=== PATIENT | male | born 1990 | race African-American/Black ===

== ENCOUNTER 2023-07-17 04:22 | Emergency (ER) | payer SELFPAY ==
[~2023-07-17] VITALS: Ht 172.7 cm; Wt 69.9 kg
[2023-07-17] MEDS: ALBUTEROL SULF 2.5 MG/0.5ML(0.5%) NEB SOLN NEB ONE (05:07)
[2023-07-17] MEDS: IPRATROPIUM BROM 0.5 MG/2.5ML INH SOL NEB ONE (05:07)
[2023-07-17 05:53] VITALS: PULSE 85; RESP 14; O2SAT 95
[2023-07-17] MEDS: methylPREDNISolone SOD SUCC 125 MG/2 ML VL IV ONE (06:41)
[2023-07-17 06:49] LABS: Hematocrit 49.8 % (41.0-53.0); Hemoglobin 16.6 g/dL (13.5-17.5); Mean Corpuscular Hemoglobin 28.7 pg (28.0-32.0); Mean Corpuscular Hgb Conc. 33.3 g/dL (32.0-36.0); Mean Corpuscular Volume 86.2 fL (80.0-100.0); Red Blood Cells 5.78 10^6/uL (4.5-5.90); Red Cell Distribution Width 13.5 % (11.8-14.3); White Blood Cell 8.2 10^3/uL (4.4-10.8)
[2023-07-17 06:56] LABS: Band Neutrophils % (manual) 0; Basophils % (manual) 0 (0.0-2.0); Blast Cells 0; Metamyelocytes % 0; Myelocytes % 0; Promyelocytes % 0; Reactive Lymphocytes 0
[2023-07-17] MEDS ORDERED: METH4PAK PO (06:57)
[2023-07-17] MEDS ORDERED: AZIT1POW PO (06:57)
[2023-07-17] MEDS ORDERED: ALBUAER3 IN (06:57)
[2023-07-17] MEDS: IPRATROPIUM BROM 0.5 MG/2.5ML INH SOL HHN ONE (06:58)
[2023-07-17] MEDS: ALBUTEROL SULF 2.5 MG/0.5ML(0.5%) NEB SOLN HHN ONE (06:58)
[2023-07-17 07:06] LABS: Chloride 103 mmol/L (98-107); Potassium 3.6 mmol/L (3.5-5.1); Sodium 139 mmol/L (136-145)
[2023-07-17 07:07] LABS: Anion Gap 4 (5-15); Carbon Dioxide 32 mmol/L (20-30)
[2023-07-17 07:08] LABS: Calcium 9.9 mg/dL (8.5-10.1)
[2023-07-17 07:12] LABS: BUN/Creatinine Ratio 11.7 (10.0-20.0); Blood Urea Nitrogen 15 mg/dL (9-23); Glucose 98 mg/dL (74-106)
[2023-07-17 07:13] VITALS: BP 118/71; PULSE 96; RESP 14; TEMP 97.4; O2SAT 94; O2SAT 95
[2023-07-17 07:35] LABS: Eosinophils % (manual) 16 (0-7); Giant Platelets Few; Lymphocytes % (manual) 23 (10.0-50.0); Monocytes % (manual) 5 (0-12); Platelet Estimate Adequate; RBC Morphology Normal
== END 2023-07-17 08:04 | disposition home or self-care (01) ==
LOC: ER 04:22
DX: J45.909 Unspecified asthma, uncomplicated (principal); R07.89 Other chest pain; Z79.2 Long term (current) use of antibiotics; Z79.899 Other long term (current) drug therapy
CPT/HCPCS: 36415; 71045; 80048; 85007; 85027; 94640; 96374; 99285; J2919; J7644